=== PATIENT | male | born 2000 | race Caucasian/White ===

== ENCOUNTER 2024-10-18 13:05 | Outpatient (CLI) | payer OTHER, SELFPAY | END 2024-10-18 13:06 | disposition home or self-care (01) | LOC: AMB 10-19 13:49 | PROVIDERS: Visit Provider Family Medicine | DX: S99.911A Unspecified injury of right ankle, initial encounter (principal); Y93.64 Activity, baseball; Y92.320 Baseball field as the place of occurrence of the external cause | CPT/HCPCS: A0425; A0427 ==